=== PATIENT | female | born 1960 | race American Indian/Alaskan Native ===

== ENCOUNTER 2017-07-27 09:07 | Emergency (ER) | payer MEDICAID ==
[2017-07-27 09:24] VITALS: BP 154/91; PULSE 84; RESP 18; TEMP 98.2; O2SAT 100; BMI 46.6
--- NOTE | 2017-07-27 10:03 | ED PDOC ---
Arrival/HPI - General Chief Complaint: Female Genitourinary Time Seen by Provider: 07/27/17 09:17 Historian: Patient - History of Present Illness Narrative History of Present Illness (Text): 07/27/17 09:58 Pt is a 56 year old female with a past medical history of DMII presents to the ED complaining of a vulvular rash for many months that is not associated with vaginal discharge or dysuria. Pt reports small bumps that create great discomfort. Was treated for UTI one month ago by her PMD, Dr. Bertrand in [place]. Pt has tried many OTC topicals on her 'rash' with no resolve. Denies being sexually active (many years) chesty pain, shortness of breath, back pain, abdominal pain, GIB, hematuria, fever, chills, n/v/d or any other complaints Time/Duration: > month Symptom Onset: Gradual Symptom Course: Unchanged Quality: Other (intense itchiness) Severity Level: 4, Moderate Activities at Onset: Rest Context: Home Past Medical History - Provider Review Nursing Documentation Reviewed: Yes - Travel History Have you recently traveled outside [place] w/in the past 3 mons?: No - Infectious Disease Hx of Infectious Diseases: None - Cardiac Hx Hypertension: Yes - Pulmonary Hx Asthma: Yes Hx Sleep Apnea: Yes - Endocrine/Metabolic Hx Diabetes Mellitus Type 2: Yes - Psychiatric Hx Substance Use: No - Surgical History Hx Tubal Ligation: Yes Family/Social History - Physician Review Nursing Documentation Reviewed: Yes Family/Social History: Unknown Family HX Smoking Status: Light Smoker < 10 Cigarettes Daily Hx Alcohol Use: No Hx Substance Use: No Allergies/Home Meds Allergies/Adverse Reactions: Allergies Penicillins Allergy (Verified 07/27/17 09:24) ANAPHYLAXIS Review of Systems - Review of Systems Constitutional: Normal Eyes: Normal ENT: Normal Respiratory: Normal Cardiovascular: Normal Gastrointestinal: Normal Genitourinary Female: Normal. absent: Dysuria, Frequency, Hematuria, Urine Output Changes, Vaginal Bleeding, Vaginal Discharge, Other Musculoskeletal: Normal Skin: Rash (vulvular), Pruritis (vulvular) Neurological: Normal Endocrine: Normal Hemo/Lymphatic: Normal Psychiatric: Normal Physical Exam Vital Signs Reviewed: Yes Vital Signs Temp Pulse Resp BP Pulse Ox 07/27/17 09:23 98.2 F 84 18 154/91 H 100 Temperature: Afebrile Blood Pressure: Normal Pulse: Regular Respiratory Rate: Normal Appearance: Positive for: Well-Appearing, Non-Toxic, Comfortable Pain Distress: None Mental Status: Positive for: Alert and Oriented X 3 - Systems Exam Mouth: Present: Moist Mucous Membranes Neck: Present: Normal Range of Motion Respiratory/Chest: Present: Clear to Auscultation, Good Air Exchange. No: Respiratory Distress, Accessory Muscle Use Cardiovascular: Present: Regular Rate and Rhythm, Normal S1, S2. No: Murmurs Abdomen: Present: Normal Bowel Sounds. No: Tenderness, Distention, Peritoneal Signs Genitourinary/Pelvic Exam: Present: Normal External Genitalia, Other (multiple, scattered papules, 1-3mm diam over pubic symphysis and vulva). No: Vaginal Discharge, Vaginal Bleeding, Vaginal Lesions, Adenexal Tenderness, Adenexal Mass , Cervical Motion Tendernes, Cervical os Closed, Odor Back: Present: Normal Inspection. No: CVA Tenderness, Midline Tenderness, Paraspinal Tenderness, Pain with Leg Raise, Decubitus Ulcer, Other Upper Extremity: Present: Normal Inspection. No: Cyanosis, Edema Lower Extremity: Present: Normal Inspection, NORMAL PULSES, Normal ROM, Neurovascularly Intact, Capillary Refill < 2 s. No: Edema, CALF TENDERNESS, Cyanosis, Rosina's Sign, Tenderness, Swelling, Erythema, Deformity, Temperature Abnormalties, Other Neurological: Present: GCS=15, CN II-XII Intact, Speech Normal Skin: Present: Warm, Dry, Rashes (multiple, scattered papules, 1-3mm diam over pubic symphysis and vulva), Normal Color. No: Diaphoretic, Erythematous, Induration, Hot, Cold, Pale, Laceration, Abscess, Abrasion, Other Psychiatric: Present: Alert, Oriented x 3, Normal Insight, Normal Concentration Medical Decision Making ED Course and Treatment: 07/27/17 10:03 Pt is a 56 year old female with a past medical history of DMII presents to the ED complaining of a vulvular rash for the many months that is not associated with vaginal discharge or dysuria. On exam, multiple, scattered papules, 1-3mm diam over pubic symphysis and vulva ; some well healed and others raised with a erythematous base Ddx: tinea corporis, genital warts, contact derm Plan UA Assess and dispo Progress Note UA neg Likely has tinea corporis or HPV Advised to use antifungal for next 3 weeks; can use lidocaine crm to relieve intense itch/burn Advised to f/u with [facility] [employer] as is scheduled in 3 weeks 07/27/17 10:49 - Lab Interpretations Lab Results: Lab Results 07/27/17 10:00: Urine Color Yellow, Urine Appearance Clear, Urine pH 7.0, Ur Specific [place] 1.020, Urine Protein Negative, Urine Glucose (UA) Negative, Urine Ketones Negative, Urine Blood Negative, Urine Nitrate Negative, Urine Bilirubin Negative, Urine Urobilinogen 0.2, Ur Leukocyte Esterase Negative I have reviewed the lab results: Yes Interpretation: All labs normal Disposition/Present on Arrival - Present on Arrival Any Indicators Present on Arrival: Yes History of DVT/PE: No History of Uncontrolled Diabetes: No Urinary Catheter: No History of Decub. Ulcer: No History Surgical Site Infection Following: None - Disposition Have Diagnosis and Disposition been Completed?: Yes Diagnosis: Rash of genital area, Tinea corporis Disposition: HOME/ ROUTINE Disposition Time: 10:46 Patient Plan: Discharge Condition: GOOD Discharge Instructions (ExitCare): Ringworm, Athlete's Foot, and Jock Itch, Skin Rash (DC) Additional Instructions: Deaelpidio Lam, Please follow up with your Primary Doctor in the next few days and see your [facility] [employer] [facility] in the next 3weeks, as scheduled. Should you have any further irritation such as fever or burning on urination, return to the Emergency department. Use the medication as directed: lidocaine cream for itchiness and Ketoconazole for the rash [facility] [place] Prescriptions: Ketoconazole 2% Cr [Nizoral] 15 applic TOP BID #1 tube Lidocaine 15 gm TP Q4 #1 tub Forms: [employer] (Slovak)
[2017-07-27 10:21] LABS: URINE BILIRUBIN NEGATIVE (NEGATIVE); URINE BLOOD NEGATIVE (NEGATIVE); URINE GLUCOSE (UA) NEGATIVE (NEGATIVE); URINE LEUKOCYTE ESTERASE NEGATIVE Leu/uL (NEGATIVE); URINE PROTEIN NEGATIVE mg/dL (<30 mg/dL); URINE UROBILINOGEN 0.2 E.U./dL (<1 E.U./dL)
[2017-07-27 10:23] LABS: URINE APPEARANCE CLEAR (CLEAR); URINE COLOR YELLOW (YELLOW)
== END 2017-07-27 11:08 | disposition home or self-care (01) ==
LOC: ED 09:07
DX: B35.4 Tinea corporis (principal); R21 Rash and other nonspecific skin eruption